=== PATIENT | female | born 1995 | race Caucasian/White ===

== ENCOUNTER → 2019-10-17 | Outpatient (REF) | payer OTHER ==
[~2019-10-17] MED LIST: BUTA1CAP PO; FERR325T3 PO; IBUP-1114 PO; OXYC1TAB23 PO; PRENTAB29 PO; TUMS500C PO; TYLE500T78 PO; VITA500T PO
== END ==
LOC: M SFHCLERA 12:18
PROVIDERS: ATTEND Physician Assistant
DX: J02.9 Acute pharyngitis, unspecified (principal)